=== PATIENT | male | born 1970 | race African-American/Black ===

== ENCOUNTER 2019-09-01 15:13 | Emergency (ER) | payer OTHER ==
[2019-09-01 15:47] VITALS: TEMP 98.3; BMI 23.7
--- NOTE | 2019-09-01 16:59 | PDOC ---
History of Present Illness <Sachi Mckeon - Last Filed: 09/02/19 13:50> - General History Source: Patient Exam Limitations: No Limitations - History of Present Illness Initial Comments: 09/01/19 16:53 Patient is a 49-year-old male with history of disc disease complaining of lower back pain x4 days patient states he started with like a cramp in the right thigh , then noticed that he had pain in the right buttocks. States his pain is sharp 10/10 which is worse with movement. Patient states that he has been unable to walk well due to the pain. He denies any bowel or bladder incontinence, saddle anesthesia. Reports that his disc problem was diagnosed 10 years ago with an MRI and has been through physical therapy when he was diagnosed. States that he only gets pain when he strains himself, however this was unprovoked. PMD: Dr. Corral PMHX: As above PSOCHX: (+) cig 3/day, neg etoh, neg drug ALL: NKDA GENERAL/CONSTITUTIONAL: [No fever or chills. No weakness. No weight change.] HEAD, EYES, EARS, NOSE AND THROAT: [No change in vision. No ear pain or discharge. No sore throat.] CARDIOVASCULAR: [No chest pain or shortness of breath.] RESPIRATORY: [No cough, wheezing, or hemoptysis.] GASTROINTESTINAL: [No nausea, vomiting, diarrhea or constipation. No rectal bleeding.] GENITOURINARY: [No dysuria, frequency, or change in urination.] MUSCULOSKELETAL: [(+) joint or muscle swelling or pain. No neck or back pain.] SKIN AND BREASTS: [No rash or easy bruising.] NEUROLOGIC: [No headache, vertigo, loss of consciousness, or loss of sensation.] PSYCHIATRIC: [No depression or anxiety.] ENDOCRINE: [No increased thirst. No abnormal weight change.] HEMATOLOGIC/LYMPHATIC: [No anemia, easy bleeding, or history of blood clots.] ALLERGIC/IMMUNOLOGIC: [No hives or skin allergy. No latex allergy.] GENERAL: [The patient is awake, alert, and fully oriented, in no acute distress. ] HEAD: [Normal with no signs of trauma.] EYES: [Pupils equal, round and reactive to light, extraocular movements intact, sclera anicteric, conjunctiva clear.] ENT: [Ears normal, nares patent, oropharynx clear without exudates. Moist mucous membranes.] NECK: [Normal range of motion, supple without lymphadenopathy, JVD, or masses.] LUNGS: [Breath sounds equal, clear to auscultation bilaterally. No wheezes, and no crackles.] HEART: [Regular rate and rhythm, normal S1 and S2 without murmur, rub.] ABDOMEN: [Soft, nontender, normoactive bowel sounds. No guarding, no rebound. No masses.] EXTREMITIES: [Normal range of motion, no edema. No clubbing or cyanosis. No cords, erythema, or tenderness.] BACK: (+) tenderness to the right buttock NEUROLOGICAL: [Cranial nerves II through XII grossly intact. Normal speech, normal gait.] PSYCH: [Normal mood, normal affect.] SKIN: [Warm, Dry, normal turgor, no rashes or lesions noted.] <Nery Wagner - Last Filed: 09/02/19 17:55> - General Chief Complaint: Back Pain Stated Complaint: BACK PAIN Past History <MckeonSachi - Last Filed: 09/02/19 13:50> - Past Medical History COPD: No Other medical history: herniated discs - Psycho Social/Smoking Cessation Hx Smoking History: Never smoked Have you smoked in the past 12 months: No Information on smoking cessation initiated: No Hx Alcohol Use: No Drug/Substance Use Hx: No <Nery Wagner - Last Filed: 09/02/19 17:55> - Past Medical History Allergies/Adverse Reactions: Allergies Allergy/AdvReac Type Severity Reaction Status Date / Time No Known Allergies Allergy Verified 09/01/19 19:39 Home Medications: Ambulatory Orders Cyclobenzaprine HCl [Flexeril 10 mg] 10 mg PO TID #20 tablet 09/01/19 Ibuprofen [Motrin -] 600 mg PO QID #120 tablet 09/01/19 Cyclobenzaprine HCl [Flexeril 10 mg] 10 mg PO TID PRN #15 tablet 09/02/19 Ibuprofen 600 mg PO QID PRN #20 tablet 09/02/19 Oxycodone HCl/Acetaminophen [Percocet 5-325 mg Tablet] 1 tab PO Q4H #12 tablet MDD 4 09/02/19 *Physical Exam - Vital Signs Last Vital Signs Temp Pulse Resp BP Pulse Ox 98.3 F 78 20 129/68 100 09/01/19 15:15 09/01/19 21:57 09/01/19 21:57 09/01/19 21:57 09/01/19 21:57 <Sachi Mckeon - Last Filed: 09/02/19 13:50> - Vital Signs Last Vital Signs Temp Pulse Resp BP Pulse Ox 98.3 F 88 16 136/88 100 09/01/19 15:15 09/01/19 15:15 09/01/19 15:15 09/01/19 15:15 09/01/19 15:15 <Nery Wagner - Last Filed: 09/02/19 17:55> ED Treatment Course - Medications Given in the ED: ED Medications Discontinued Medications Generic Name Dose Route Start Last Admin Trade Name Porterq PRN Reason Stop Dose Admin Diazepam 5 mg 09/01/19 17:03 09/01/19 17:20 Valium - PO 09/01/19 17:04 5 mg ONCE ONE Administration Ketorolac Tromethamine 30 mg 09/01/19 17:03 09/01/19 17:20 Toradol Injection - IVPUSH 09/01/19 17:04 30 mg ONCE ONE Administration Lidocaine 1 patch 09/01/19 17:03 09/01/19 17:20 Lidoderm Patch - TP 09/01/19 17:04 1 patch ONCE ONE Administration Morphine Sulfate 4 mg 09/01/19 18:56 09/01/19 19:22 Morphine Injection - IVPUSH 09/01/19 18:57 4 mg ONCE ONE Administration Oxycodone/Acetaminophen 1 combo 09/01/19 21:16 09/01/19 21:59 Percocet 5/325 - PO 09/01/19 21:17 1 combo ONCE ONE Administration <Sachi Mckeon - Last Filed: 09/02/19 13:50> Medical Decision Making - Medical Decision Making The patient was seen and evaluated in conjunction with midlevel provider under my direct supervision, ancillary studies were reviewed. I agree with the plan as outlined with Carol Crespo. HPI, workup/dispo as outlined. VS reviewed, wnl. back pain, right buttock, h/o herniated discs. [place] x4, no focal neuro deficits. has had prior imaging done and dx'd disc herniation and attends to PT. anticipate discharge, pcp followup, return precautions 09/02/19 09:49 pt called this morning requesting to change pharmacies due to his insurance coverage, re rx'd ibuprofen 600mg QID prn and flexeril TID prn for muscle spasms to [facility]. pt requesting oxycodone, but no rx was made out. instructed pt will not rx oxycodone if not in the chart, as I reviewed the ambulatory orders and [employer] note - pt received one time dose of percocet here. 09/02/19 13:50 pt's family came with discharge paperwork, confirmed on sheet with discharge percocet 1 tab every 4 hours prn severe pain, sent to pharmacy (initial one issue with insurance). <Sachi Mckeon - Last Filed: 09/02/19 13:50> - Medical Decision Making 09/01/19 16:53 Patient is a 49-year-old male with history of disc disease complaining of lower back pain x4 days patient states he started with like a cramp in the right thigh , then noticed that he had pain in the right buttocks. States his pain is sharp 10/10 which is worse with movement. Patient states that he has been unable to walk well due to the pain. He denies any bowel or bladder incontinence, saddle anesthesia. Reports that his disc problem was diagnosed 10 years ago with an MRI and has been through physical therapy when he was diagnosed. States that he only gets pain when he strains himself, however this was unprovoked. Symptoms consistent with sciatica Toradol/Valium/Lidoderm Reassess Patient still unable to sit up given morphine 4 mg IV 09/01/19 21:16 Patient feels improved pain now is 7/10 able to stand up. Will give Percocet 1 tab p.o. I discussed the physical exam findings, ancillary test results and final diagnoses with the patient. I answered all of the patient's questions. The patient was satisfied with the care received and felt comfortable with the discharge plan and treatment plan. The Patient agrees to follow up with the primary care physician within 24-72 hours. 09/02/19 17:54 Called patient about the problem with the Percocet Rx. He did eventually get Dr. Mckeon's prescription that was sent. There was no need to his recent another prescription. Patient states feeling better after medication. <Nery Wagner - Last Filed: 09/02/19 17:55> Discharge <Sachi Mckeonelizabeth - Last Filed: 09/02/19 13:50> - Discharge Information Problems reviewed: Yes <CarolRenettaNery Crespo - Last Filed: 09/02/19 17:55> - Discharge Information Clinical Impression/Diagnosis: Lower back pain Qualifiers: Chronicity: unspecified Back pain laterality: right Sciatica presence: with sciatica Sciatica laterality: sciatica of right side Qualified Code(s): M54.41 - Lumbago with sciatica, right side Condition: Stable Disposition: HOME - Additional Discharge Information Prescriptions: Cyclobenzaprine HCl [Flexeril 10 mg] 10 mg PO TID PRN #15 tablet PRN Reason: Muscle Spasms Cyclobenzaprine HCl [Flexeril 10 mg] 10 mg PO TID #20 tablet Ibuprofen 600 mg PO QID PRN #20 tablet PRN Reason: Pain Ibuprofen [Motrin -] 600 mg PO QID #120 tablet Oxycodone HCl/Acetaminophen [Percocet 5-325 mg Tablet] 1 tab PO Q4H #12 tablet MDD 4 - Follow up/Referral Referrals: Edgar Ledbetter MD [Staff Physician] - - Patient Discharge Instructions Patient Printed Discharge Instructions: DI for Lumbar Radiculopathy Additional Instructions: Your Discharge Instructions: You must call primary care physician within 24 hours to arrange follow-up. Return to the Emergency Department with any new, persistent or worsening symptoms, for fever, chills, SOB, dizziness or any other concerning changes that may occur. Call the orthopedist for an appointment. Take Tylenol and Motrin and muscle relaxant as needed for your pain. - Post Discharge Activity Work/Back to School Note: Back to Work
[2019-09-01] MEDS ORDERED: diazePAM 5 MG TABLET PO ONE (17:03)
[2019-09-01] MEDS ORDERED: KETOROLAC TROMETHAMINE 30 MG/1 ML VIAL IVPUSH ONE (17:03)
[2019-09-01] MEDS ORDERED: LIDOCAINE 5% TOPICAL PATCH TP ONE (17:03)
[2019-09-01] MEDS ORDERED: diazePAM 5 MG TABLET ONE (17:23)
[2019-09-01] MEDS ORDERED: KETOROLAC TROMETHAMINE 30 MG/1 ML VIAL ONE (17:24)
[2019-09-01] MEDS ORDERED: LIDOCAINE 5% TOPICAL PATCH ONE (17:24)
[2019-09-01] MEDS ORDERED: morphine CARPU-JECT 4 MG/1 ML DISP.SYRIN IVPUSH ONE (18:56)
[2019-09-01] MEDS ORDERED: morphine SULFATE 4 MG/ML VIAL ONE (19:14)
[2019-09-01 19:35] VITALS: PULSE 78
[2019-09-01] MEDS ORDERED: LIDOCAINE PATCH REMOVAL MC SCH (22:00)
[2019-09-01 22:04] VITALS: BP 129/68
== END 2019-09-01 22:03 | disposition home or self-care (01) ==
LOC: JER 15:13
PROC: 3E033NZ Introduction of Analgesics, Hypnotics, Sedatives into Peripheral Vein, Percutaneous Approach (ICD-10-PCS; principal; 2019-09-01)
PROC: 3E0333Z Introduction of Anti-inflammatory into Peripheral Vein, Percutaneous Approach (ICD-10-PCS; 2019-09-01)
DX: M54.41 Lumbago with sciatica, right side (principal)
CPT/HCPCS: 99281-25